=== PATIENT | male | born 1990 | race Caucasian/White ===

== ENCOUNTER 2016-02-26 00:17 | Emergency (ER) | payer SELFPAY ==
[2016-02-26] MEDS ORDERED: CYCLOBENZAPRINE 10 MG TAB ONE (01:15)
[2016-02-26] MEDS ORDERED: KETOROLAC 60 MG/2 ML VIAL IM ONE (01:15)
== END 2016-02-26 02:28 | disposition home or self-care (01) ==
LOC: ER 00:17
DX: S29.012A Strain of muscle and tendon of back wall of thorax, initial encounter (principal); X50.0XXA Overexertion from strenuous movement or load, initial encounter
CPT/HCPCS: 72072; 96372